=== PATIENT | female | born 1980 ===

== ENCOUNTER 2018-12-24 05:46 | Day surgery (SDC) | payer OTHER ==
[2018-12-24] VITALS (13 sets, daily range): BP systolic 92–111; BP diastolic 50–72
[~2018-12-24] VITALS: Ht 170.2 cm; Wt 61.2 kg
[~2018-12-24 05:46] MED LIST: IBUPROFEN600 MG ORAL; OXYCODONE-ACET1 EAC3 ORAL; TEMAZEPAM30 MG ORAL; XANAX1 MG ORAL; ZOFRAN4 M3 ORAL
[2018-12-24] MEDS ORDERED: cefOXitin 1gm Inj ONE (06:48)
[2018-12-24] MEDS ORDERED: Iothalamate Meglumine 60% 30ML INJ ONE (06:52)
[2018-12-24] MEDS ORDERED: fentaNYL 100 mcg/2 mL IV ONE (06:56)
[2018-12-24] MEDS ORDERED: Lidocaine 1% MPF 10mg/ml 5ml ONE (06:56)
[2018-12-24] MEDS ORDERED: Propofol 200mg/20ml IV ONE (06:56)
[2018-12-24] MEDS ORDERED: Midazolam 2mg/2ml Inj ONE (06:56)
[2018-12-24] MEDS ORDERED: Ketorolac 30mg Inj ONE (06:56)
[2018-12-24] MEDS ORDERED: Cefepime HCl 1 GM in D5W 55 ML IVPB ONE (07:00)
[2018-12-24] MEDS ORDERED: Sterile Water Irrig 1000ml IRRIG ONE (07:00)
[2018-12-24] MEDS ORDERED: LR 1000ml ONE (07:00)
[2018-12-24] MEDS ORDERED: TransDerm Scop 1mg/72HR Patch TDERMAL ONE (07:06)
[2018-12-24] MEDS ORDERED: NS Irrig 4000ml IRRIG ONE (07:14)
--- NOTE | 2018-12-24 07:14 | Pre-Procedure Note/Attestation ---
Pre-Procedure Note/Attestation Complete Prior to Procedure Planned Procedure: left Procedure Narrative: cysto, left ureteroscopy, laser litho, ureteral stent Indications for Procedure Pre-Operative Diagnosis: left ureteral calc, hydro, colic Attestation I attest that I discussed the nature of the procedure; its benefits; risks and complications; and alternatives (and the risks and benefits of such alternatives ), prior to the procedure, with the patient (or the patient's legal guest experience representative). I attest that, if there was a reasonable possibility of needing a blood transfusion, the patient (or the patient's legal guest experience representative) was given the [facility] standardized written summary, pursuant to the [place] Blood Safety Act ([place] Health and Safety Code # 1645, as amended). I attest that I re-evaluated the patient just prior to the surgery and that there has been no change in the patient's H&P, except as documented below: Daniel Garay MD December 24, 2018 07:14
--- NOTE | 2018-12-24 07:15 | Urology Progress Note ---
Assessment/Plan Assessment/Plan: left ureteral calc hydro colic pt still with pain has not passed stone will proceed risks, etc discussed with pt understands will have ureteral stent Subjective Allergies: Coded Allergies: No Known Allergies (Unverified , 12/21/18) Subjective all noted, for surg today Objective Last 24 Hour Vital Signs Date Time Temp Pulse Resp B/P (MAP) Pulse Ox O2 Delivery O2 Flow Rate FiO2 12/24/18 06:37 Room Air 12/24/18 06:27 97.0 57 18 99/58 99 Room Air Laboratory Tests 12/24/18 06:05: Urine HCG, Qualitative Negative Height (Feet): 5 Height (Inches): 7.00 Weight (Pounds): 135 Objective exam stable Daniel Garay MD December 24, 2018 07:15
--- NOTE | 2018-12-24 07:54 | Anethesia Preoperative Eval ---
Anesthesia Pre-op PMH/ROS General Date of Evaluation: December 24, 2018 Time of Evaluation: 06:55 Anesthesiologist: Dayo ASA Score: ASA 2 Mallampati Score Class I : Soft palate, uvula, fauces, pillars visible Class II: Soft palate, uvula, fauces visible Class III: Soft palate, base of uvula visible Class IV: Only hard plate visible Mallampati Classification: Class II Surgeon: Tanisha Diagnosis: Kidney stones Surgical Procedure: Cysto Lithotrypsy Anesthesia History: none Family History: no anesthesia problems Allergies: Coded Allergies: No Known Allergies (Unverified , 12/21/18) Medications: see eMAR Patient NPO?: Yes Past Medical History Cardiovascular: Denies: HTN, CAD, [place], valve dz, arrhythmia, other Pulmonary: Denies: asthma, COPD, KEY[place], other Gastrointestinal/Genitourinary: Reports: GERD - mild, other - kidneystone; Denies: CRI, ESRD Neurologic/Psychiatric: Denies: dementia, CVA, depression/anxiety, TIA, other Endocrine: Denies: DM, hypothyroidism, steroids, other HEENT: Denies: cataract (L), cataract (R), glaucoma, [place] (L), [place] (R), other Hematology/Immune: Denies: anemia, DVT, bleeding disorder, other Musculoskeletal/Integumentary: Denies: OA, RA, DJD, DDD, edema, other PMH Narrative: as above PSxH Narrative: D&C Anesthesia Pre-op Phys. Exam Physician Exam Last Vital Signs Date Time Temp Pulse Resp B/P (MAP) Pulse Ox O2 Delivery O2 Flow Rate FiO2 12/24/18 06:37 Room Air 12/24/18 06:27 97.0 57 18 99/58 99 Constitutional: NAD Neurologic: CN 2-12 intact Cardiovascular: RRR, no M/R/G Respiratory: CTA Gastrointestinal: S/NT/ND Airway Exam Mallampati Score: Class II MO: full Neck: flexible ROM: full Teeth: intact Dentures: no upper, no lower Anesthesia Pre-op A/P Labs Urine Test Test 12/24/18 06:05 Urine HCG, Qualitative Negative (NEGATIVE) Risk Assessment & Plan Assessment: ASA 2 Plan: GA with LMA PONV prevention Status Change Before Surgery: No Pre-Antibiotics Drug: Cefoxitin 1gr Given Within 1 Hr of Incision: Yes Time Given: 07:16 Charlie Oshea MD December 24, 2018 07:54
[2018-12-24] MEDS ORDERED: LR 1000ml 1,000 ML IVLG SCH (07:55)
[2018-12-24] MEDS ORDERED: Ketorolac 30mg Inj IV PRN (08:00)
[2018-12-24] MEDS ORDERED: Meperidine 50mg/ml Inj(FOR RIGORS ONLY) IV PRN (08:00)
[2018-12-24] MEDS ORDERED: DiphenhydrAMINE 50mg/ml Inj IVP PRN (08:00)
[2018-12-24] MEDS ORDERED: Metoclopramide 10mg/2ml Inj IVP PRN (08:00)
[2018-12-24] MEDS ORDERED: TransDerm Scop 1mg/72HR Patch TDERMAL SCH (08:00)
--- NOTE | 2018-12-24 08:25 | Brief Operative Note ---
Immediate Post Operative Note Operative Note Pre-op Diagnosis: left ureteral calc, hydro, colic Procedure: cysto, left ureteroscopy, laser litho, RPG, ureteral stent Post-op Diagnosis: same as pre-op Surgeon: mery Anesthesiologist: rica Anesthesia: general Specimen: yes - ureteral calc Complications: none Condition: stable Fluids: NS Estimated Blood Loss: minimal Implant(s) used?: Yes - 6f x 26 cm left ureteral JJ stent Daniel Garay MD December 24, 2018 08:25
--- NOTE | 2018-12-24 08:34 | Immediate Post-Op Evaluation ---
Immediate Post-Op Evalulation Immediate Post-Op Evalulation Procedure: Cysto, retrograde pyelogram, laser lithotrypsy Date of Evaluation: December 24, 2018 Time of Evaluation: 08:34 IV Fluids: 800 Blood Products: none Estimated Blood Loss: min Urinary Output: n/a Blood Pressure Systolic: 115 Blood Pressure Diastolic: 58 Pulse Rate: 62 Respiratory Rate: 20 O2 Sat by Pulse Oximetry: 99 Temperature (Fahrenheit): 97.6 Pain Score (1-10): 1 Nausea: No Vomiting: No Complications none Patient Status: awake, patent, none Hydration Status: adequate Charlie Oshea MD December 24, 2018 08:34
--- NOTE | 2018-12-24 10:38 | 48 Hour Post Anesthesia Eval ---
Post Anesthesia Evaluation Procedure: Cysto, retrograde pyelogram, laser lithotrypsy Date of Evaluation: December 24, 2018 Time of Evaluation: 10:37 Blood Pressure Systolic: 104 0: 52 Pulse Rate: 72 Respiratory Rate: 20 Temperature (Fahrenheit): 97.8 O2 Sat by Pulse Oximetry: 98 Airway: patent Nausea: No Vomiting: No Pain Intensity: 2 Hydration Status: adequate Cardiopulmonary Status: stable Mental Status/LOC: patient returned to baseline Follow-up Care/Observations: n/a Post-Anesthesia Complications: none Follow-up care needed: ready to discharge Charlie Oshea MD December 24, 2018 10:38
--- NOTE | 2018-12-24 14:07 | Diagnostic Imaging Report ---
Indication: Intraoperative imaging. Retrograde ureterography Comparison: None Findings: 5 fluoroscopically obtained images showing the ureteroscope with cannulation of the left ureter, injection of contrast showing dilated collecting system at the level of the calyces. Suggestion of some filling defects. A ureteral stent was placed subsequently. IMPRESSION: Intraoperative imaging
--- NOTE | 2018-12-25 23:16 | Operative Note - Dictated ---
DATE OF OPERATION: 12/24/2018 PREOPERATIVE DIAGNOSIS: Left ureteral calculus with history of hydronephrosis and colic. POSTOPERATIVE DIAGNOSIS: Left ureteral calculus with history of hydronephrosis and colic (stone impacted). PROCEDURE PERFORMED: Cystoscopy, urethral calibration, left ureteroscopy, laser lithotripsy, stone extraction, retrograde pyelogram, placement of double-J stent. OPERATING SURGEON: Daniel Garay M.D. ANESTHESIOLOGIST: Charlie Oshea M.D. ANESTHESIA: General. INDICATION FOR PROCEDURE: This is a pleasant 38-year-old female. She has a history of left-sided renal colic and on recent imaging studies was noted to have a 3 mm stone of the left ureter. She was given a trial of passage; however, she was not able to pass the stone and after going various options, she was scheduled for the above procedure and possible for definitive treatment. The nature of the procedure including possible risks and complications of bleeding, infection, potential damage to the urethra, bladder, ureter, need for further surgery were discussed with the patient. No guarantees were given or implied. FINDINGS: The patient had a stone in the distal ureter and intramural portion was completely packed into the wall of the ureter. Significant stenosis of the ureter distally was cleared. PROCEDURE IN DETAIL: Informed consent was obtained from the patient. The patient was brought to the operating room and then placed in supine position. After successful general anesthesia was induced, the patient was then placed in a modified dorsal lithotomy position, and her genital area was then prepped and draped in usual sterile fashion. Preoperative IV antibiotics were administered. Time-out was performed. At this point, the patient's urethral meatus was stenotic and gently dilated. Cystoscopy was then performed. I inspected the bladder. I did not see any stones visible. The left ureteral orifice was cannulated with open-ended catheter. An angled wire was then passed up stone, which was impacted. The wire was then passed up into the kidney. This was left as a safety wire. Rigid ureteroscopy was then performed. The orifice as well as the intramural portion of the ureter was very stenotic and I passed second wire and the scope was advanced over the second wire and I was able to identify the stone, which appeared to be impacted completely into the wall of the ureter and I was able to gently disimpact it. It was . I then used a 200 micron holmium laser fiber to break into small pieces which were retrieved with stone basket. Contrast was injected. There was mild dilatation of the collecting system and once I was convinced the patient is stone free and the rest of them are passable, I passed the double-J stent, which was a 6-Ivorian x 26 cm under fluoroscopic guidance into kidney and appeared to be in good position with good curl in the kidney as well as the bladder, this was confirmed cystoscopically. Robbins catheter was placed. The patient was awakened and taken to the recovery room in stable condition. Blood loss was minimal. No complication Daniel Garay M.D. DR: Cee JOB#: [id number] CC: Negro Munguia M.D.; Fax#: [phone]
== END 2018-12-24 11:40 | disposition home or self-care (01) ==
LOC: SUR 05:46
DX: N20.1 Calculus of ureter (principal); N23 Unspecified renal colic; Z79.899 Other long term (current) drug therapy; Z87.442 Personal history of urinary calculi; K21.9 Gastro-esophageal reflux disease without esophagitis
CPT/HCPCS: 52344; 52356; 74420; 76000; 81025; J0694; J1885; J2175; J2250; J2405; J2704; J3010; Q9961; 94003; 94150

== ENCOUNTER 2019-01-23 05:16 | Day surgery (SDC) | payer OTHER ==
[2019-01-23] VITALS (10 sets, daily range): BP systolic 104–118; BP diastolic 52–69
[~2019-01-23] VITALS: Ht 170.2 cm; Wt 23.6 kg
[2019-01-23] MEDS ORDERED: cefOXitin Sod 1 GM in D5W 55 ML IVPB ONE (06:15)
[2019-01-23] MEDS ORDERED: Iothalamate Meglumine 60% 30ML INJ ONE (06:30)
[2019-01-23] MEDS ORDERED: cefOXitin 1gm Inj ONE (06:44)
[2019-01-23] MEDS ORDERED: fentaNYL 100 mcg/2 mL IV ONE (06:48)
[2019-01-23] MEDS ORDERED: Midazolam 2mg/2ml Inj ONE (06:48)
[2019-01-23] MEDS ORDERED: Propofol 200mg/20ml IV ONE (06:50)
[2019-01-23] MEDS ORDERED: LR 1000ml ONE (07:00)
--- NOTE | 2019-01-23 07:10 | Pre-Procedure Note/Attestation ---
Pre-Procedure Note/Attestation Complete Prior to Procedure Planned Procedure: left Procedure Narrative: cystoscopy, removal of left ureteral stent, ureteroscopy, retrograde pyelogram Indications for Procedure Pre-Operative Diagnosis: hx of ureteral calc, s/p litho, ureteral stent indwelling Attestation I attest that I discussed the nature of the procedure; its benefits; risks and complications; and alternatives (and the risks and benefits of such alternatives ), prior to the procedure, with the patient (or the patient's legal digital sales representative). I attest that, if there was a reasonable possibility of needing a blood transfusion, the patient (or the patient's legal digital sales representative) was given the [place] [facility] standardized written summary, pursuant to the [place] Aidan Blood Safety Act ([place] Health and Safety Code # 1645, as amended). I attest that I re-evaluated the patient just prior to the surgery and that there has been no change in the patient's H&P, except as documented below: Daniel Garay MD Jan 23, 2019 07:10
[2019-01-23] MEDS ORDERED: Sterile Water For Irrig 2000ml IRRIG ONE (07:21)
[2019-01-23] MEDS ORDERED: NS Irrig 1000ml IRRIG ONE (07:21)
[2019-01-23] MEDS ORDERED: ePHEDrine 50mg/ml Inj ONE (07:33)
[2019-01-23] MEDS ORDERED: Sodium Chloride 10ml vial INJ ONE (07:33)
[2019-01-23] MEDS ORDERED: LR 1000ml 1,000 ML IVLG SCH (07:44)
--- NOTE | 2019-01-23 07:44 | Anethesia Preoperative Eval ---
Anesthesia Pre-op PMH/ROS General Date of Evaluation: Jan 23, 2019 Time of Evaluation: 06:50 Anesthesiologist: Dayo ASA Score: ASA 2 Mallampati Score Class I : Soft palate, uvula, fauces, pillars visible Class II: Soft palate, uvula, fauces visible Class III: Soft palate, base of uvula visible Class IV: Only hard plate visible Mallampati Classification: Class II Surgeon: Tanisha Diagnosis: Indweling uretheral stent Surgical Procedure: Cysto stent removal Anesthesia History: none Social History: current smoker Family History: no anesthesia problems Allergies: Coded Allergies: No Known Allergies (Unverified , 12/21/18) Medications: see eMAR Patient NPO?: Yes Past Medical History Cardiovascular: Denies: HTN, CAD, [place], valve dz, arrhythmia, other Pulmonary: Denies: asthma, COPD, KEY[place], other Gastrointestinal/Genitourinary: Reports: GERD - mild, other - kidney stones; Denies: CRI, ESRD Neurologic/Psychiatric: Denies: dementia, CVA, depression/anxiety, TIA, other Endocrine: Denies: DM, hypothyroidism, steroids, other HEENT: Denies: cataract (L), cataract (R), glaucoma, [place]R), other Hematology/Immune: Denies: anemia, DVT, bleeding disorder, other Musculoskeletal/Integumentary: Denies: OA, RA, DJD, DDD, edema, other PMH Narrative: as above PSxH Narrative: Lithotripsy Anesthesia Pre-op Phys. Exam Physician Exam Last Vital Signs Date Time Temp Pulse Resp B/P (MAP) Pulse Ox O2 Delivery O2 Flow Rate FiO2 01/23/19 06:10 Room Air 01/23/19 05:56 97.8 65 18 105/52 100 Constitutional: NAD Neurologic: CN 2-12 intact Cardiovascular: RRR, no M/R/G Respiratory: CTA Airway Exam Mallampati Score: Class II MO: full ROM: full Teeth: intact Dentures: no upper, no lower Anesthesia Pre-op A/P Labs see chart Urine Test Test 01/23/19 05:40 Urine HCG, Qualitative Negative (NEGATIVE) Risk Assessment & Plan Assessment: ASA 2 Plan: GA with LMA Status Change Before Surgery: No Pre-Antibiotics Drug: Cefoxitin 1gr. Given Within 1 Hr of Incision: Yes Time Given: 07:20 Charlie Oshea MD Jan 23, 2019 07:44
[2019-01-23] MEDS ORDERED: Meperidine 50mg/ml Inj(FOR RIGORS ONLY) IV PRN (07:45)
[2019-01-23] MEDS ORDERED: Metoclopramide 10mg/2ml Inj IVP PRN (07:45)
[2019-01-23] MEDS ORDERED: Ketorolac 30mg Inj IV PRN (07:45)
--- NOTE | 2019-01-23 07:49 | Brief Operative Note ---
Immediate Post Operative Note Operative Note Pre-op Diagnosis: hx of ureteral calc, s/p litho, ureteral stent indwelling Procedure: cysto, removal of left ureteral stent, ureteroscopy, retrograde pyelogram Post-op Diagnosis: same as pre-op Surgeon: mery Anesthesiologist: rica Anesthesia: general Specimen: yes Complications: none Condition: stable Fluids: NS Estimated Blood Loss: none Implant(s) used?: No Daniel Garay MD Jan 23, 2019 07:49
--- NOTE | 2019-01-23 08:00 | Immediate Post-Op Evaluation ---
Immediate Post-Op Evalulation Immediate Post-Op Evalulation Procedure: Cysto retrograde pyelogram removal of stent Date of Evaluation: Jan 23, 2019 Time of Evaluation: 07:59 IV Fluids: 600 Blood Products: none Estimated Blood Loss: none Urinary Output: n/a Blood Pressure Systolic: 118 Blood Pressure Diastolic: 65 Pulse Rate: 69 Respiratory Rate: 20 O2 Sat by Pulse Oximetry: 99 Temperature (Fahrenheit): 97.2 Pain Score (1-10): 1 Nausea: No Vomiting: No Complications none Patient Status: reacts, patent, none Hydration Status: adequate Charlie Oshea MD Jan 23, 2019 08:00
--- NOTE | 2019-01-23 09:36 | Diagnostic Imaging Report ---
INDICATION: Pain, intraoperative TECHNIQUE: Intraoperative imaging Fluoroscopy time: 10.9 seconds Total dose: [id number] mGym2 Total number of images: 3 COMPARISON: None FINDINGS: Intraoperative images demonstrate opacification of the left ureter and renal collecting system. There is mild dilatation of the left renal collecting system. IMPRESSION: Intraoperative imaging, as described
--- NOTE | 2019-01-23 09:39 | 48 Hour Post Anesthesia Eval ---
Post Anesthesia Evaluation Procedure: Cysto retrograde pyelogram removal of stent Date of Evaluation: Jan 23, 2019 Time of Evaluation: 09:38 Blood Pressure Systolic: 104 0: 58 Pulse Rate: 72 Respiratory Rate: 20 Temperature (Fahrenheit): 97.6 O2 Sat by Pulse Oximetry: 98 Airway: patent Nausea: No Vomiting: No Pain Intensity: 1 Hydration Status: adequate Cardiopulmonary Status: stable Mental Status/LOC: patient returned to baseline Follow-up Care/Observations: n/a Post-Anesthesia Complications: none Follow-up care needed: ready to discharge Charlie Oshea MD Jan 23, 2019 09:39
--- NOTE | 2019-01-24 15:00 | Operative Note - Dictated ---
DATE OF OPERATION: 01/23/2019 NOTE: POOR AUDIO QUALITY PREOPERATIVE DIAGNOSIS: History of left ureteral calculus, status post stent. POSTOPERATIVE DIAGNOSIS: History of left ureteral calculus, status post stent. PROCEDURE PERFORMED: Cystoscopy, urethral calibration, removal of left ureteral stent, left ureteroscopy, retrograde pyelogram. OPERATING SURGEON: Daniel Graay M.D. ANESTHESIOLOGIST: Charlie Oshea M.D. ANESTHESIA: General. INDICATION FOR PROCEDURE: This is a pleasant 38-year-old female. She has a history of a small left ureteral calculus, which I had treated about a month ago. So, the stone was occluded and an indwelling ureteral stent was placed. Removal of the stent was recommended. The patient wanted to anesthesia. As such, she was scheduled for the above procedure. Possible risks and complication of bleeding, infection, anesthesia, damage to the urethra, bladder, and ureter were discussed. No guarantees were given or implied. FINDINGS: The ureteral stent was removed intact. There were no residual stones noted. PROCEDURE IN DETAIL: Informed consent was obtained from the patient. The patient was brought to the operative room and placed in the supine position. Successful general anesthesia was induced. The patient was then placed in the modified dorsal lithotomy position and her genital area was prepped and draped in the usual sterile fashion. Preoperative IV antibiotics were administered. Time-out was performed. The urethra was gently dilated. Cystoscopy was performed. I was able to identify the stent. It was grasped with a grasper and was pulled out intact without difficulty. At this point, rigid ureteroscopy was performed. There were bullous changes around the left ureteral orifice. However, the ureter was dilated without difficulty. There was no residual stones noted in the ureter. The contrast was injected. There was minimal dilatation and good drainage of contrast. At this point, the ureteroscope was removed and the bladder was emptied. The patient was awakened and was taken to the recovery room in stable condition. Blood loss was minimal. No complication. Daniel Garay M.D. DR: PERFECTO JOB#: [id number] CC:
== END 2019-01-23 09:40 | disposition home or self-care (01) ==
LOC: SUR 05:16
DX: Z46.6 Encounter for fitting and adjustment of urinary device (principal); F17.200 Nicotine dependence, unspecified, uncomplicated; K21.9 Gastro-esophageal reflux disease without esophagitis; Z87.442 Personal history of urinary calculi
CPT/HCPCS: 52310; 74420; 76000; 81025; J0690; J0694; J2250; J2405; J2704; J3010; Q9961; 94003; 94150